=== PATIENT | male | born 1990 | race Asian ===

== ENCOUNTER 2017-12-10 20:45 | Emergency (ER) | payer SELFPAY ==
[~2017-12-10] VITALS: Ht 165.1 cm; Wt 72.7 kg
[~2017-12-10 20:45] MED LIST: NO HOME MEDICATIONS
[2017-12-10 20:50] VITALS: BP 164/106; PULSE 104; TEMP 97.6
[2017-12-10] MEDS ORDERED: MIRALAX 255 GM255 GM PO (22:07)
[2017-12-10] MEDS ORDERED: LIDOCAINE HCL100 M1 MM (22:07)
== END 2017-12-10 22:14 | disposition home or self-care (01) ==
LOC: COL.ER 20:45
DX: K64.4 Residual hemorrhoidal skin tags (principal); K64.8 Other hemorrhoids